=== PATIENT | male | born 1950 | race Caucasian/White ===

== ENCOUNTER → 2017-05-20 | Outpatient (CLI) | payer OTHER ==
[2017-05-20 15:54] LABS: BASO % 0.7 %; BASO ABS # 0.04 K/uL (0-0.2); EOS % 2.5 %; EOS ABS # 0.14 K/uL (0-0.5); HEMATOCRIT 45.1 % (42-52); HEMOGLOBIN 15.5 g/dL (14.0-18.0); IG# 0.01 K/uL (0.00-0.02); LYMPH % 26.7 %; LYMPH ABS # 1.52 K/uL (1.2-3.4); MEAN CELL VOLUME 89.1 fL (80-100); MEAN CORPUSCULAR HEMOGLOBIN 30.6 pg (25-34); MEAN CORPUSCULAR HGB CONC 34.4 g/dl (32-36); MEAN PLATELET VOLUME 10.3 fL (7.4-10.4); MONO % 7.4 %; MONO ABS # 0.42 K/uL (0.11-0.59); NEUT % 62.5 %; NEUT ABS # 3.56 K/uL (1.4-6.5); PLATELET COUNT 172 K/uL (130-400); RED CELL DISTRIBUTION WIDTH CV 13.8 % (11.5-14.5); RED CELL DISTRIBUTION WIDTH SD 44.8 fL (36.4-46.3); WHITE BLOOD COUNT 5.69 K/uL (4.8-10.8)
[2017-05-20 16:21] LABS: ALBUMIN 3.5 gm/dl (3.4-5.0); ALT/SGPT 33 U/L (12-78); AST/SGOT 20 U/L (15-37); BLOOD UREA NITROGEN 15 mg/dl (7-18); CALCIUM 8.7 mg/dl (8.5-10.1); CARBON DIOXIDE 30 mmol/L (21-32); CREATININE 0.93 mg/dl (0.60-1.40); GLUCOSE 96 mg/dl (70-99); LIPASE 159 U/L (73-393); POTASSIUM 4.1 mmol/L (3.5-5.1); SODIUM 139 mmol/L (136-145)
[2017-05-20 16:24] LABS: ALKALINE PHOSPHATASE 49 U/L (45-117); TOTAL PROTEIN 7.1 gm/dl (6.4-8.2)
== END | disposition home or self-care (01) ==
LOC: C.LAB1850 14:21
PROVIDERS: ATTEND Internal Medicine
DX: R10.9 Unspecified abdominal pain (principal)

== ENCOUNTER → 2017-05-29 | Outpatient (CLI) | payer OTHER ==
--- NOTE | 2017-05-29 10:16 | DIAGNOSTIC IMAGING REPORT ---
ABDOMINAL WALL ULTRASOUND CLINICAL HISTORY: R10.9 Abdominal pain, 1 inch to the right of the umbilicus COMPARISON STUDY: No previous studies for comparison. FINDINGS: Corresponding to the area of pain, there is an elliptical hyperechoic 22 x 12 x 6 mm lesion within the right rectus muscle. This finding cannot be further characterized with ultrasound. An MRI of the abdominal wall without and with contrast is recommended in follow-up. There is a small reducible umbilical hernia. IMPRESSION: 1. Indeterminate 22 x 12 x 6 mm elliptical hyperechoic lesion within the right rectus muscle. This corresponds to the area of pain. An MRI of the abdominal wall is recommended in follow-up for further characterization. 2. Small reducible umbilical hernia Electronically signed by: Salo Jeffrey M.D. 05/29/2017 10:15 AM Dictated Date/Time: 05/29/2017 9:47 AM
== END | disposition home or self-care (01) ==
LOC: C.ULTRBC 09:18
PROVIDERS: ATTEND Internal Medicine
DX: R10.9 Unspecified abdominal pain (principal)

== ENCOUNTER → 2017-06-05 | Outpatient (CLI) | payer OTHER ==
[~2017-06-05] MED LIST: GADAVIST IV PRN
--- NOTE | 2017-06-05 16:44 | DIAGNOSTIC IMAGING REPORT ---
ABDOMEN COMBO CLINICAL HISTORY: 66 years-old Male presenting with ABN ULTRASOUND,MUSCLE MASS,PAIN. TECHNIQUE: Multisequence, multiplanar MR imaging of the abdomen was performed before and after the administration of intravenous contrast. IV contrast: 7 mL of Gadavist. COMPARISON: Ultrasound from 05/29/2017. FINDINGS: Fat-containing nonenhancing 1.6 x 0.8 x 0.6 cm lesion in the right rectus abdominis is consistent with a lipoma. No enhancing suspicious components. No reactive changes in the rectus abdominis. No other lesion is identified. Allowing for motion artifact, visualized hollow and solid viscera of the abdomen normal. No abnormal enhancement. Normal bone marrow signal intensity. IMPRESSION: 1. The lesion of clinical interest in the right rectus abdominis is consistent with a lipoma. Electronically signed by: Ortega Mason M.D. 06/05/2017 4:43 PM Dictated Date/Time: 06/05/2017 4:37 PM
== END | disposition home or self-care (01) ==
LOC: C.MRI 14:46
PROVIDERS: ATTEND Internal Medicine
DX: R29.898 Other symptoms and signs involving the musculoskeletal system (principal); R10.9 Unspecified abdominal pain; R19.00 Intra-abdominal and pelvic swelling, mass and lump, unspecified site